=== PATIENT | female | born 1970 | race Caucasian/White ===

== ENCOUNTER 2024-01-15 08:29 | Outpatient (CLI) | payer OTHER, SELFPAY ==
--- NOTE | ~2024-01-15 | MR_ITS ---
EXAMINATION: MR shoulder LT wo con DATE: 01/15/2024 09:27 INDICATION: Traumatic complete tear of left rotator cuff. Left upper arm pain. TECHNIQUE: Magnetic resonance imaging (MRI) of the left shoulder was performed without intravenous co ntrast. Sequences included axial PD-weighted FS FSE, coronal oblique PD-weighted FS FSE and T2-weight ed FS FSE, and sagittal oblique T2-weighted FS FSE and T1-weighted FSE. COMPARISON: None. FINDINGS: Coracoacromial arch: The acromion undersurface is curved in morphology (type II). There is mild acromioclavicular joint os teoarthritis. There is mild subacromial/subdeltoid bursitis. Rotator cuff: There is moderate supraspinatus tendinopathy with shallow bursal sided fraying. There is mild infrasp inatus tendinopathy. Teres minor tendon is normal. Subscapularis tendon is normal. There is no fatty atrophy of the rotator cuff muscle bellies. Biceps tendon and glenoid labrum: Biceps tendon is in bicipital groove. Intra-articular biceps tendon is normal. The glenoid labrum is normal. Fluid: There is no glenohumeral joint effusion. Bones/cartilage: Glenoid cartilage is normal. Humeral head cartilage is normal. IMPRESSION: 1. Moderate supraspinatus tendinopathy with shallow bursal-sided fraying. 2. Mild acromioclavicular joint osteoarthritis. 3. Mild subacromial/subdeltoid bursitis. Reviewed, dictated and finalized at location A.
== END 2024-01-15 08:30 | disposition home or self-care (01) ==
PROVIDERS: Visit Provider Orthopaedic Surgery
DX: M75.22 Bicipital tendinitis, left shoulder (principal); M19.012 Primary osteoarthritis, left shoulder; M75.52 Bursitis of left shoulder
CPT/HCPCS: 73221